=== PATIENT | female | born 1985 | race African-American/Black ===

== ENCOUNTER 2022-09-22 16:14 | Emergency (ER) | payer OTHER ==
[2022-09-22 16:47] LABS: #Basophils 0.1 thou/uL (0.0-0.2); #Lymphocytes 0.7 thou/uL (1.20-3.40); #Monocytes 0.6 thou/uL (0.11-0.59); #Neutrophils 14.8 thou/uL (1.40-6.50); %Basophils 0.4 % (0.0-1.0); %Lymphocytes 4.3 % (21.0-51.0); %Monocytes 3.4 % (0.0-10.0); %Neutrophils 91.8 % (42.0-75.0); Hemoglobin 10.1 g/dL (12.0-16.0); Mean Corpuscular HGB CONC 32.2 g/dL (32.0-36.0); Mean Corpuscular Hemoglobin 26.5 pg (27.0-31.0); Mean Corpuscular Volume 82.2 fl (78.0-98.0); Mean Platelet Volume 8.9 fL (7.4-10.4); Platelet Count 215 10x3/uL (130-400); RBC Distribution Width 14.2 % (11.5-14.5); Red Blood Cell (RBC) Count 3.82 mill/uL (4.20-5.40); White Blood Cell (WBC) Count 16.1 10x3/uL (4.8-10.8)
[2022-09-22 16:48] LABS: ALT (SGPT) 17 U/L (8-55); AST (SGOT) 22 U/L (5-34); Albumin 3.7 g/dL (3.5-5.0); Alkaline Phosphatase 43 U/L (40-110); Anion Gap 16 mmol/L (10-20); BUN (Urea Nitrogen) 6 mg/dL (7.0-18.7); Bilirubin, Total 0.5 mg/dL (0.2-1.2); Calc. Creatinine Clearance 0 mL/min (70-130); Calcium 9.4 mg/dL (7.8-10.44); Carbon Dioxide 19 mmol/L (22-29); Chloride 103 mmol/L (98-107); Estimated GFR 102; Globulin 3.2 g/dL (2.4-3.5); Glucose 94 mg/dL (70-105); Potassium 3.3 mmol/L (3.5-5.1); Protein, Total 6.9 g/dL (6.0-8.3); Sodium 135 mmol/L (136-145)
[2022-09-22] MEDS ORDERED: Ampicillin 2 GM VIAL ONE ×2 (16:59→17:05)
[2022-09-22] MEDS ORDERED: Sodium Chloride 0.9% 100 ML ONE (16:59)
[2022-09-22] MEDS ORDERED: Sodium Chloride 0.9% 0 ML ONE (17:05)
[2022-09-22] MEDS ORDERED: Gentamicin Sulfate 100 MG in Premix Bag 1 BAG IVPB SCH (17:45)
[2022-09-22] MEDS ORDERED: Morphine 4 MG/ML VIAL ONE ×2 (17:51→20:16)
[2022-09-22] MEDS ORDERED: Clindamycin/D5W 600 mg/50 ml Premix Bag ONE (17:52)
[2022-09-22] MEDS ORDERED: Ondansetron ODT 4 MG TAB ONE (20:10)
== END 2022-09-22 20:36 | disposition short-term general hospital (02) ==
LOC: NAV ERS 16:14
DX: O98.812 Other maternal infectious and parasitic diseases complicating pregnancy, second trimester (principal); O41.1220 Chorioamnionitis, second trimester, not applicable or unspecified; O16.2 Unspecified maternal hypertension, second trimester; O09.512 Supervision of elderly primigravida, second trimester; Z3A.18 18 weeks gestation of pregnancy
CPT/HCPCS: 80053; 83605; 85025; 86850; 86900; 86901; 87040; 87077; 87149; 87186; 96365; 96367; 96375; 96376; J0290; J1580; J2270; J3490; Q0162